=== PATIENT | female | born 1985 | race Caucasian/White ===

== ENCOUNTER 2020-03-22 19:26 | Emergency (ER) | payer OTHER ==
[2020-03-22 19:33] VITALS: TEMP 98.6
--- NOTE | 2020-03-22 20:10 | ED ---
Eye Problem HPI - General Chief complaint: Neuro Symptoms/Deficit Stated complaint: Vision Problems Time Seen by Provider: 03/22/20 19:49 Source: patient, RN notes reviewed, old records reviewed Mode of arrival: ambulatory Limitations: no limitations - History of Present Illness Initial comments: This is a 34 show female at heart for withdrawal, withdrawal heroin and crack, patient is have blurry vision for 3 days episodically and today noticed her I wasn't acting appropriately her left eyelid appears to not go on the instruction sheet chooses, no trauma no fevers no headache no other neurological complaints arms and legs are acting appropriately MD chief complaint: eye pain, eye injury -: days(s) Onset Description: sudden Location: left eye Place: home If Injury: none Severity: mild Severity scale (1-10): 2 Consistency: constant Context: recent uri Associated Symptoms: none Treatments Prior to Arrival: none - Related Data Home Medications Medication Instructions Recorded Confirmed Acetaminophen Tab [Tylenol] 650 mg PO Q4H PRN 03/22/20 03/22/20 Calcium/Magnesium/Zinc 2 tab PO TID PRN 03/22/20 03/22/20 [Hwssevg-Sduftvkbl-Gkfc Tablet] Chlorpheniramine Maleate 4 mg PO Q4H PRN 03/22/20 03/22/20 [Chlor-Trimeton] Ibuprofen [Motrin] 600 mg PO Q6H PRN 03/22/20 03/22/20 Metoprolol Tartrate [Lopressor] 25 mg PO BID@0630,1700 03/22/20 03/22/20 Multivitamins, Thera [Multivitamin 1 tab PO DAILY@1230 03/22/20 03/22/20 (formulary)] Ondansetron HCl [Zofran] 8 mg PO Q6H PRN 03/22/20 03/22/20 Thiamine [Vitamin B-1] 100 mg PO DAILY@1230 03/22/20 03/22/20 Tigan 200mg Im Solution 200 mg IM Q6H PRN 03/22/20 03/22/20 Tigan 300mg Suppository 300 mg RECTAL Q6H PRN 03/22/20 03/22/20 Trimethobenzamide [Tigan] 300 mg PO Q6H PRN 03/22/20 03/22/20 Zofran 2mg/Ml Im Dilution 4 mg IM Q6H PRN 03/22/20 03/22/20 busPIRone HCl [Buspar] 10 mg PO TID PRN 03/22/20 03/22/20 cloNIDine HCL [Catapres] 0.1 mg PO Q4H PRN 03/22/20 03/22/20 Allergies Allergy/AdvReac Type Severity Reaction Status Date / Time latex Allergy Rash/Hives Verified 03/22/20 21:34 Sulfa (Sulfonamide Allergy Rash/Hives Verified 03/22/20 21:34 Antibiotics) Review of Systems ROS Statement: Those systems with pertinent positive or pertinent negative responses have been documented in the HPI. ROS Other: All systems not noted in ROS Statement are negative. Past Medical History Past Medical History: Hypertension History of Any Multi-Drug Resistant Organisms: None Reported Past Surgical History: Tubal Ligation Past Psychological History: Anxiety, PTSD Smoking Status: Current some day smoker Past Alcohol Use History: None Reported Past Drug Use History: Cocaine, Heroin General Exam Limitations: no limitations General appearance: alert, in no apparent distress Head exam: Present: atraumatic, normocephalic, normal inspection Eye exam: Present: normal appearance, PERRL. Absent: EOMI (Patient does have decreased extraocular movement in the left eye I does tend to refer to immediately), scleral icterus, conjunctival injection, periorbital swelling ENT exam: Present: normal exam, mucous membranes moist Neck exam: Present: normal inspection. Absent: tenderness, meningismus, lymphadenopathy Respiratory exam: Present: normal lung sounds bilaterally. Absent: respiratory distress, wheezes, rales, rhonchi, stridor Cardiovascular Exam: Present: regular rate, normal rhythm, normal heart sounds. Absent: systolic murmur, diastolic murmur, rubs, gallop, clicks GI/Abdominal exam: Present: soft, normal bowel sounds. Absent: distended, tenderness, guarding, rebound, rigid Extremities exam: Present: normal inspection, full ROM, normal capillary refill. Absent: tenderness, pedal edema, joint swelling, calf tenderness Back exam: Present: normal inspection Neurological exam: Present: alert, oriented X3, CN II-XII intact Psychiatric exam: Present: normal affect, normal mood Skin exam: Present: warm, dry, intact, normal color. Absent: rash Course Vital Signs 03/22/20 03/22/20 03/22/20 19:27 20:00 20:30 Temperature 98.6 F Pulse Rate 62 63 64 Respiratory 18 20 20 Rate Blood Pressure 130/83 132/89 121/84 O2 Sat by Pulse 100 99 99 Oximetry 03/22/20 03/22/20 03/22/20 21:00 21:30 22:00 Temperature Pulse Rate 59 L 66 59 L Respiratory 18 18 20 Rate Blood Pressure 120/75 119/72 121/76 O2 Sat by Pulse 100 100 99 Oximetry - Reevaluation(s) Reevaluation #1: Medical records reviewed Symptoms continue to improve Medical Decision Making - Medical Decision Making 34 female DF for evaluation, patient has a lateral rectus and lateral nerve palsy left eye, symptoms are improving here in the ER patient can be discharged home - Lab Data Result diagrams: 03/22/20 20:20 03/22/20 20:20 Lab Results 03/22/20 03/22/20 Range/Units 20:20 20:20 WBC 5.3 (3.8-10.6) k/uL RBC 4.28 (3.80-5.40) m/uL Hgb 11.6 (11.4-16.0) gm/dL Hct 36.3 (34.0-46.0) % MCV 84.8 (80.0-100.0) fL MCH 27.1 (25.0-35.0) pg MCHC 32.0 (31.0-37.0) g/dL RDW 15.1 (11.5-15.5) % Plt Count 259 (150-450) k/uL Neutrophils % 46 % Lymphocytes % 42 % Monocytes % 6 % Eosinophils % 3 % Basophils % 1 % Neutrophils # 2.5 (1.3-7.7) k/uL Lymphocytes # 2.2 (1.0-4.8) k/uL Monocytes # 0.3 (0-1.0) k/uL Eosinophils # 0.1 (0-0.7) k/uL Basophils # 0.0 (0-0.2) k/uL Hypochromasia Moderate Sodium 139 (137-145) mmol/L Potassium 4.3 (3.5-5.1) mmol/L Chloride 107 (98-107) mmol/L Carbon Dioxide 26 (22-30) mmol/L Anion Gap 6 mmol/L BUN 16 (7-17) mg/dL Creatinine 0.80 (0.52-1.04) mg/dL Est GFR (CKD-EPI)AfAm >90 (>60 ml/min/1.73 sqM) Est GFR (CKD-EPI)NonAf >90 (>60 ml/min/1.73 sqM) Glucose 96 (74-99) mg/dL Calcium 9.4 (8.4-10.2) mg/dL Total Bilirubin 0.3 (0.2-1.3) mg/dL AST 23 (14-36) U/L ALT 11 (4-34) U/L Alkaline Phosphatase 54 (38-126) U/L Creatine Kinase 535 H (30-135) U/L Total Protein 6.6 (6.3-8.2) g/dL Albumin 3.9 (3.5-5.0) g/dL - EKG Data -: EKG Interpreted by Me (EKG shows sinus rhythm rate of 61. 160 QRS 94 QTc 465) - Radiology Data Radiology results: report reviewed (CT brain CT had neck negative for acute disease), image reviewed Disposition Clinical Impression: Nerve palsy, Lateral rectus palsy, Blurry vision Disposition: HOME SELF-CARE Condition: Good Instructions (If sedation given, give patient instructions): Blurred Vision (ED) Is patient prescribed a controlled substance at d/c from ED?: No Referrals: None,Stated [REFERRING] - 1-2 days
[2020-03-22] MEDS ORDERED: SODIUM CHLORIDE 0.9% 1,000 ML IV STA (20:14)
[2020-03-22 20:28] LABS: Basophils % (A) 1 %; Eosinophils # (A) 0.1 k/uL (0-0.7); Eosinophils % (A) 3 %; HCT 36.3 % (34.0-46.0); HGB 11.6 gm/dL (11.4-16.0); Hypochromasia Moderate; Lymphocytes # (A) 2.2 k/uL (1.0-4.8); Lymphocytes % (A) 42 %; MCH 27.1 pg (25.0-35.0); MCV 84.8 fL (80.0-100.0); Mean Platelet Volume 8.4; Monocytes # (A) 0.3 k/uL (0-1.0); Monocytes % (A) 6 %; Neutrophils # (A) 2.5 k/uL (1.3-7.7); Neutrophils % (A) 46 %; Platelet Count 259 k/uL (150-450); RBC 4.28 m/uL (3.80-5.40); RDW 15.1 % (11.5-15.5); WBC 5.3 k/uL (3.8-10.6)
[2020-03-22 20:36] LABS: ALT 11 U/L (4-34); AST 23 U/L (14-36); African American GFR (CKD) >90 (>60 ml/min/1.73 sqM); Albumin 3.9 g/dL (3.5-5.0); Alkaline Phosphatase 54 U/L (38-126); Anion Gap 6 mmol/L; Blood Urea Nitrogen 16 mg/dL (7-17); Calcium 9.4 mg/dL (8.4-10.2); Carbon Dioxide 26 mmol/L (22-30); Chloride 107 mmol/L (98-107); Creatine Kinase 535 U/L (30-135); Glucose 96 mg/dL (74-99); Non-African American GFR(CKD) >90 (>60 ml/min/1.73 sqM); Potassium 4.3 mmol/L (3.5-5.1); Sodium 139 mmol/L (137-145); Total Bilirubin 0.3 mg/dL (0.2-1.3); Total Protein 6.6 g/dL (6.3-8.2)
--- NOTE | 2020-03-22 21:22 | CT ---
EXAMINATION TYPE: CT brain wo con DATE OF EXAM: 03/22/2020 COMPARISON: None INDICATION: Vision changes, lazy left eye DLP: 1098.8 mGycm, Automated exposure control for dose reduction was used. CONTRAST: None CT of the brain is performed utilizing 3 mm thick sections through the posterior fossa and 3 mm thick sections through the remaining calvarium. Study is performed within 24 hours of arrival to the hosp [facility]. No abnormal hyperdensity is present to suggest an acute intracranial hemorrhage. No mass lesion is evident. No acute infarcts are evident. Ventricles and sulci are appropriate for the patient age. Paranasal sinuses and mastoid air cells within the cottr-to-engr are clear. IMPRESSIONS: 1. Normal CT Brain
--- NOTE | 2020-03-22 22:02 | CT ---
EXAMINATION TYPE: CT angio head neck DATE OF EXAM: 03/22/2020 HISTORY: Left lazy eye and vision changes COMPARISON: None CT DLP: 404.1 mGycm. Automated Exposure Control for Dose Reduction was Utilized. TECHNIQUE: CTA scan of the neck is performed with IV Contrast, patient injected with 65 mL of Isovue 370, axial images are obtained, coronal and sagittal reformatted images are reviewed. Three-D recons tructed images are created on an independent workstation and reviewed. Source images are reviewed. FINDINGS: Carotid/Vascular Structures: Right subclavian and left common carotid artery arises from the innomina te right The right tibial artery appears dominant. Left vertebral artery is patent. The common caroti d arteries bifurcate normally into internal and external carotid arteries. The internal carotid arter ies are patent to the skull base. Cervical of [place]: Vertebral basilar system appears normal. Posterior cerebral vasculature is unrema rkable. Internal carotid arteries bifurcate normally into A1 and M1 segments. A2 segments are normal. The anterior communicating artery is patent. Left Posterior communicating artery is patent. Right po sterior communicating artery is patent. Other: No discrete aneurysm is identified. IMPRESSION: 1. No flow-limiting stenosis bilateral carotid bifurcations. 2. Normal [place].
[2020-03-22 22:22] VITALS: BP 121/76; PULSE 59; RESP 20
== END 2020-03-22 22:35 | disposition home or self-care (01) ==
LOC: EC 19:26
DX: H49.882 Other paralytic strabismus, left eye (principal); I10 Essential (primary) hypertension; F41.9 Anxiety disorder, unspecified; F43.10 Post-traumatic stress disorder, unspecified; F17.200 Nicotine dependence, unspecified, uncomplicated; Z79.899 Other long term (current) drug therapy; Z91.040 Latex allergy status; Z88.2 Allergy status to sulfonamides
CPT/HCPCS: 99285 ×2; 96360 ×2; 36415; 80053; 82550; 85025; 70496; 70450; 70498; Q9967